=== PATIENT | male | born 1960 ===

== ENCOUNTER 2022-11-19 08:26 | Outpatient (CLI) | payer BC | END 2022-11-19 08:27 | disposition home or self-care (01) | LOC: CSHLAB 08:26 | PROVIDERS: ATTEND Otolaryngology Plastic Surgery within the Head & Neck | DX: Z01.818 Encounter for other preprocedural examination (principal); K13.70 Unspecified lesions of oral mucosa | CPT/HCPCS: 93005; 93010 ==

== ENCOUNTER 2022-11-26 12:24 | Day surgery (SDC) | payer BC ==
[2022-11-19 09:01] VITALS: BMI 35.2
[~2022-11-26 12:24] MED LIST: fentaNYL 50 mcg/mL 1 mL Vial ONE
[2022-11-26] MEDS ORDERED: Acetaminophen 500 MG TAB ONE (12:29)
[2022-11-26] MEDS ORDERED: EPINEPHrine 1 MG/ML AMP ONE (12:47)
[2022-11-26] MEDS ORDERED: PROPOFOL 20 ML ONE (12:48)
[2022-11-26] MEDS ORDERED: fentaNYL 50 mcg/mL 1 mL Vial ONE (12:48)
[2022-11-26] MEDS ORDERED: Lidocaine 1% PF 5 ML VIAL ONE (12:50)
[2022-11-26] MEDS ORDERED: Rocuronium Bromide 10 MG/ML (10ML VIAL) ONE (12:51)
[2022-11-26] MEDS ORDERED: SUGAMMADEX SODIUM 200 MG/2 ML VIAL ONE (12:53)
[2022-11-26] MEDS ORDERED: Dexamethasone 20 MG/5 ML VIAL ONE (13:08)
[2022-11-26] MEDS ORDERED: Ondansetron PF 4 MG/2 ML Vial ONE (13:11)
[2022-11-26] MEDS ORDERED: ePHEDrine Sulfate 50 MG/10 ML VIAL ONE (13:19)
== END 2022-11-26 15:15 | disposition home or self-care (01) ==
LOC: CSHSDC 12:24
PROVIDERS: ATTEND Otolaryngology Plastic Surgery within the Head & Neck
PROC: 0CBM8ZX Excision of Pharynx, Via Natural or Artificial Opening Endoscopic, Diagnostic (ICD-10-PCS; principal; 2022-11-26)
PROC: 0C5 Mouth and Throat, Destruction (ICD-10-PCS; principal; 2022-11-26)
DX: K13.79 Other lesions of oral mucosa (principal); Z88.2 Allergy status to sulfonamides; Z87.891 Personal history of nicotine dependence
CPT/HCPCS: 88305; J0171; J1100; J2405; J2704; J3010